=== PATIENT | male | born 1955 | race Caucasian/White ===

== ENCOUNTER 2023-11-01 10:33 | Emergency (ER) | payer MEDICARE, OTHER, SELFPAY ==
[2023-11-01 10:45] VITALS: BP 151/65; PULSE 63; RESP 18; TEMP 36.8; O2SAT 98; BMI 58.0
--- NOTE | 2023-11-01 10:55 | ED_ITS ---
HPI - Skin/Abscess/Foreign Bdy General Chief complaint: Skin/Abscess/Foreign Body Stated complaint: RASH Time Seen by Provider: 11/01/23 10:55 Source: patient Mode of arrival: walk-in Limitations: no limitations History of Present Illness HPI narrative: patient here for evaluation of a rash he believes it started approximately a month ago. He thought initially it may have been poison shereen but his rashes spread. He's actually had shingles before in his facial area. Otherwise he has no complaints or symptoms at all today. Related Data Allergies Allergy/AdvReac Type Severity Reaction Status Date / Time No Known Drug Allergies Allergy Verified 11/01/23 10:49 Exam Narrative Exam Narrative: examination as noted under medical decision making Constitutional Vital Signs, click to edit/add: Last Vital Signs Temp 98.2 F 11/01/23 10:45 Pulse 63 11/01/23 10:45 Resp 18 11/01/23 10:45 BP 151/65 H 11/01/23 10:45 Pulse Ox 98 11/01/23 10:45 O2 Del Method Room Air 11/01/23 10:45 Course Vital Signs Vital signs: Vital Signs Temperature 98.2 F 11/01/23 10:45 Pulse Rate 63 11/01/23 10:45 Respiratory Rate 18 11/01/23 10:45 Blood Pressure 151/65 H 11/01/23 10:45 Pulse Oximetry 98 11/01/23 10:45 Oxygen Delivery Method Room Air 11/01/23 10:45 Temperature 98.2 F 11/01/23 10:45 Pulse Rate 63 11/01/23 10:45 Respiratory Rate 18 11/01/23 10:45 Blood Pressure 151/65 H 11/01/23 10:45 Pulse Oximetry 98 11/01/23 10:45 Oxygen Delivery Method Room Air 11/01/23 10:45 MDM - Skin/Abscess/Foreign Bdy MDM Narrative Medical decision making narrative: awake alert pleasant in no distress vital signs are noted essentially stable. Examination of skin integument he has classic vesicular type lesions in a dermatomal pattern starting in the anterior chest wall midline extending underneath the left breast into his posterior thoracic area. Multiple vesicles are noted. He assures me that there are at least a month old.we will give him analgesics for nighttime use. He is trying not to rub the area and get a secondary infection. Cold compresses with Epsom salts may be helpful Discharge Plan Discharge Chief Complaint: Skin/Abscess/Foreign Body Clinical Impression: Acute pain associated with herpes zoster Patient Disposition: Home, Self-Care Time of Disposition Decision: 10:57 Additional Instructions: [place] at nighttime only Stand Alone Forms: Portal Instructions
== END 2023-11-01 11:07 | disposition home or self-care (01) ==
LOC: ER 11:06
PROVIDERS: Emergency Provider Emergency Medicine Emergency Medical Services
DX: B02.8 Zoster with other complications (principal); R52 Pain, unspecified
CPT/HCPCS: 99283

== ENCOUNTER 2023-12-01 11:14 | Outpatient (OUT) | payer MEDICARE, OTHER, SELFPAY ==
--- OUTSIDE RECORDS SUMMARY | 2023-12-01 11:27 | XMS_ITS | CCD ---
Author Name Unknown Address [address] [place] [id number] Organization [facility] Care Team Providers Care Drapery Cutter Machine Name Role Phone CLARK FELIPE Admitting Unavailable CLARK FELIPE Attending Unavailable CLARK FELIPE Consulting Unavailable FELICITAS TODD Referring Unavailable BARBRADENIFABRIZIO Attending Unavailable FELICITAS TODD Referring Unavailable FABRIZIO MOCK Attending Unavailable FELICITAS TODD Referring Unavailable FELICITAS TODD Attending Unavailable VERA ACEVEDO Attending Unavailable CLARK FELIPE Referring Unavailable CLARK FELIPE Primary Care Unavailable Clark Felipe DO Primary Care Provider Allergies Allergy Classification Reported Allergen(s) Allergy Type Date of Onset Reaction(s) Facility (4 sources) Grass pollen; Translations: [GRASS POLLEN] Propensity to adverse reactions to drug (disorder) 3 [facility] Medications Current Medications Medication Drug Class(es) Dates Sig (Normalized) Sig (Original) acetaminophen 325 mg / HYDROcodone bitartrate 5 mg oral tablet (2 sources) Opioid Agonist Start: 11-01-2023 take 1-2 tablets by mouth at bedtime HYDROcodone-acetam inophen (NORCO) 5-325 mg per tablet TAKE 1 TO 2 TABLETS BY MOUTH AT BEDTIME FOR UP TO 20 DAYS 0 11/01/2023 Active apixaban 5 mg oral tablet (2 sources) Factor Xa Inhibitor take 1 tablet by mouth at bedtime ELIQUIS 5 mg tablet TAKE 1 TABLET BY MOUTH IN THE MORNING AND AT BEDTIME 0 Active aspirin 325 mg oral tablet (2 sources) Platelet Aggregation Inhibitor, Nonsteroidal Anti-inflammatory Drug aspirin 325 mg tablet daily. 0 Active brimonidine tartrate 2 mg/ml ophthalmic solution (2 sources) alpha-Adrenergic Agonist Start: 11-18-2022 take 1 drop(s) into the eye(s) every twelve hours brimonidine (ALPHAGAN) 0.2 % ophthalmic solution INSTILL 1 DROP INTO BOTH EYES EVERY 12 HOURS DIRECTED 0 11/18/2022 Active szoj-ctodgp-azyebesz -D3-C-Mn (GLUCOSAMINE-CHONDR- D3, C-CHARISSE,) 500-400-667 mg-mg-unit capsule (2 sources) nvth-hrfuik-doam ag en-D3-C-Mn (GLUCOSAMINE-CHOND R-D3, C-CHARISSE,) 500-400-667 mg-mg-unit capsule daily. 0 Active lidocaine 0.05 mg/mg medicated patch (2 sources) Antiarrhythmic, Amide Local Anesthetic Start: 11-05-2023 apply 1 dose transdermal route once daily, then apply 1 dose transdermal route every twelve hours lidocaine (LIDODERM) 5 % Place 1 patch on the skin daily. Remove & Discard patch within 12 hours or as directed by 10 patch 0 11/05/2023 Active 24 hr metoprolol succinate 100 mg extended release oral tablet (2 sources) beta-Adrenergic Altagracia Start: 08-31-2022 take 1 tablet by mouth twice daily metoprolol succinate XL (TOPROL XL) 100 mg 24 hr tablet metoprolol succinate ER 100 mg tablet,extended release 24 hr Take 1 tablet twice a day by oral route for 90 days. 0 08/31/2022 Active predniSONE 20 mg oral tablet (1 source) Start: 11-05-2023 End: 11-10-2023 take 1 tablet by mouth in the morning, then take 1 tablet by mouth at bedtime predniSONE (DELTASONE) 20 mg tablet Take 1 tablet (20 mg total) by mouth in the morning and 1 tablet (20 mg total) before bedtime. Do all this for 5 days. 10 tablet 0 11/05/2023 11/10/2023 Active ramipril 5 mg oral capsule (3 sources) Angiotensin Converting Enzyme Inhibitor Start: 11-13-2023 take 1 capsule by mouth once daily ramipriL (ALTACE) 5 mg capsule Indications: Essential (primary) hypertension TAKE 1 CAPSULE BY MOUTH EVERY DAY 90 capsule 1 11/13/2023 Active Start: 2023 End: 11-13-2023 take 1 capsule by mouth once daily ramipriL (ALTACE) 5 mg capsule Indications: Essential (primary) hypertension TAKE 1 CAPSULE BY MOUTH EVERY DAY 90 capsule 1 2023 11/13/2023 Discontinued rosuvastatin calcium 5 mg oral tablet (3 sources) HMG-CoA Reductase Inhibitor Start: 11-13-2023 take 1 tablet by mouth once daily rosuvastatin (CRESTOR) 5 mg tablet Indications: Encounter for screening for cardiovascular disorders TAKE 1 TABLET BY MOUTH EVERY DAY 90 tablet 2 11/13/2023 Active Start: 02-24-2023 End: 11-13-2023 take 1 tablet by mouth once daily rosuvastatin (CRESTOR) 5 mg tablet Indications: Encounter for screening for cardiovascular disorders TAKE 1 TABLET BY MOUTH EVERY DAY 90 tablet 2 02/24/2023 11/13/2023 Discontinued valACYclovir 500 mg oral tablet (1 source) Herpesvirus Nucleoside Analog DNA Polymerase Inhibitor, Herpes Simplex Virus Nucleoside Analog DNA Polymerase Inhibitor, Herpes Zoster Virus Nucleoside Analog DNA Polymerase Inhibitor Start: 11-05-2023 End: 11-12-2023 take 2 tablets by mouth three times daily valACYclovir (VALTREX) 500 mg tablet Take 2 tablets (1,000 mg total) by mouth 3 (three) times a day for 7 days. 42 tablet 0 11/05/2023 11/12/2023 Active Problems Active Problems Problem Classification Problem Date Documented Da te Episodic/Chronic Cardiac dysrhythmias (2 sources) Sinus node dysfunction; Translations: [Sick sinus syndrome] Onset: 12-04-2013 11-25-2022 Chronic Conduction disorders (4 sources) Encounter for adjustment and management of automatic implantable cardiac defibrillator; Translations: [Conduction disorder of the heart] Onset: 11-03-2012 Chronic Congestive heart failure; nonhypertensive (2 sources) Congestive heart failure; Translations: [Heart failure, unspecified] Onset: 03-17-2012 11-25-2022 Chronic Disorders of lipid metabolism (2 sources) Hypertriglyceridemi a; Translations: [Pure hyperglyceridemia] Onset: 11-25-2022 11-25-2022 Chronic Essential hypertension (3 sources) Essential hypertension; Translations: [Essential (primary) hypertension] Onset: 11-25-2022 11-25-2022 Chronic Other screening for suspected conditions (not mental disorders or infectious disease) (2 sources) Encounter for screening for malignant neoplasm of prostate; Translations: [Patient encounter status] Onset: 11-11-2018 11-13-2023 Episodic Pulmonary heart disease (2 sources) Chronic cor pulmonale; Translations: [Pulmonary heart disease, unspecified] Onset: 11-03-2012 11-25-2022 Chronic Residual codes; unclassified (4 sources) High risk heterosexual behavior; Translations: [HIGH RISK HETEROSEXUAL BEHAVIOR] Onset: 11-03-2018 Episodic Residual codes; unclassified (1 source) Other specified personal risk factors, not elsewhere classified; Translations: [OTH SPEC PERSONAL RISK FACTORS NEC] Onset: 11-11-2018 Episodic Past or Other Problems Problem Classification Problem Date Documented Da te Episodic/Chronic Cardiac dysrhythmias (2 sources) Palpitations; Translations: [Palpitations] Onset: 03-17-2012 11-25-2022 Episodic Mood disorders (2 sources) Mood disorders Onset: 11-05-2023 11-05-2023 Nonspecific chest pain (2 sources) Chest pain; Translations: [Chest pain, unspecified] Onset: 03-17-2012 Resolved: 11-25-2022 11-25-2022 Episodic Other nutritional; endocrine; and metabolic disorders (2 sources) Overweight in adulthood with body mass index of 25 or more but less than 30; Translations: [Body mass index (BMI) 27.0-27.9, adult] Onset: 11-25-2022 11-25-2022 Episodic Viral infection (4 sources) Zoster without complications; Translations: [Herpes zoster without complication] Onset: 11-05-2023 Resolved: 11-25-2022 11-05-2023 Episodic Results Test Name Value Interpretation Reference Range Facility Documentationon 10-28-2023 Documentation [id number] Justin Younger 1955 M Date Provider Department Center 10/28/[address] No family history on file Reason for Visit and Comments: Palpitations [414768] Normal [facility] Office Visiton 10-19-2023 Follow-up visit [id number] Justin Younger 1955 M Date Provider Department Center 10/19/2023 FELICITAS BISHOP CARD [facility] No family history on file Level of Service:20530 NE OFFICE/OUTPATIENT ESTABLISHED MOD MDM 30 MIN Normal [facility] Orders Onlyon 10-19-2023 Orders Only [id number] Justin Younger 1955 M Date Provider Department Center 10/19/2023 SHAYLEE MYRICK [facility] No family history on file Normal [facility] Office Visiton 05-26-2023 Follow-up visit [id number] Justin Younger 1955 M Date Provider Department Center 05/26/2023 FABRIZIO RAHMAN [facility] No family history on file Level of Service:39051 NE OFFICE/OUTPATIENT ESTABLISHED MOD MDM 30-39 MIN Normal [facility] Office Visiton 12-01-2022 Follow-up visit [id number] Justin Younger 1955 M Date Provider Department Center 12/01/2022 FABRIZIO RAHMAN [facility] No family history on file Level of Service:35721 NE OFFICE/OUTPATIENT ESTABLISHED LOW MDM 20-29 MIN Normal [facility] COMPREHENSIVE METABOLIC PANE Yemi 01-25-2022 Albumin [Mass/Vol] 4.9 g/dL Normal 3.6-5.1 [facility] Comment on above: Performed By: #### 7 600, 09428, 5363 #### [facility] [place] [address] Bilingual Customer Service Specialist: Nick Bermeo MD Albumin/Globulin [Mass ratio] 2.0 {ratio} Normal 1.0-2.5 [facility] Comment on above: Performed By: #### 7 600, 28561, 5363 #### [facility] [place] [address] Bilingual Customer Service Specialist: Nick Bermeo MD ALP [Catalytic activity/Vol] 54 U/L Normal 35-144 [facility] Comment on above: Performed By: #### 7 600, 48808, 5368 #### [facility] [place] [address] Bilingual Customer Service Specialist: Nick Bermeo MD ALT [Catalytic activity/Vol] 21 U/L Normal 9-46 [facility] Comment on above: Performed By: #### 7 600, 34048, 5363 #### [facility] of [address], [address] [place] [address] Bilingual Customer Service Specialist: Nick Bermeo MD AST [Catalytic activity/Vol] 17 U/L Normal 10-35 [facility] Comment on above: Performed By: #### 7 600, 97136, 5363 #### [facility] of [address], [address] [place] [address] Bilingual Customer Service Specialist: Nick Bermeo MD Bilirubin [Mass/Vol] 0.5 mg/dL Normal 0.2-1.2 [facility] Comment on above: Performed By: #### 7 600, 49904, 5363 #### [facility] of [address], [address] [place] [address] Bilingual Customer Service Specialist: Nick Bermeo MD BUN/CREATININE RATIO NOT APPLICABLE Normal 6-22 [facility] Comment on above: Performed By: #### 7 600, , 5363 #### [facility] of [address], [address] [place] [address] Bilingual Customer Service Specialist: Nick Bermeo MD Calcium [Mass/Vol] 9.9 mg/dL Normal 8.6-10.3 [facility] Comment on above: Performed By: #### 7 600, 89395, 5363 #### [facility] of [place] [address] Bilingual Customer Service Specialist: Nick Bermeo MD Chloride [Moles/Vol] 100 mmol/L Normal 98-110 [facility] Comment on above: Performed By: #### 7 600, 70012, 5363 #### [facility] of [address], [address] [place] [address] Bilingual Customer Service Specialist: Nick Bermeo MD CO2 [Moles/Vol] 28 mmol/L Normal 20-32 [facility] Comment on above: Performed By: #### 7 600, 43137, 5363 #### [facility] of [address], [address] [place] [address] Bilingual Customer Service Specialist: Nick Bermeo MD Creatinine [Mass/Vol] 1.05 mg/dL Normal 0.70-1.[address] [facility] Comment on above: Result Comment: For patients >49 years of age, the reference limit for Creatinine is approximately 13% higher for people identified as -Citizen Of [place]. Performed By: #### 7 600, 51329, 5363 #### [facility] [address], [address] [place] [address] Bilingual Customer Service Specialist: Nick Bermeo MD eGFR NON-AFR. SLOVAK 75 mL/min/1.73m2 Normal > OR = 60 [facility] Comment on above: Performed By: #### 7 600, 51441, 5363 #### [facility] [address], [address] [place] [address] Bilingual Customer Service Specialist: Nick Bermeo MD GFR/1.73 sq M.predicted among blacks MDRD (S/P/Bld) [Vol rate/Area] 87 mL/min/{1.73_m2} Normal > OR = 60 [facility] Comment on above: Performed By: #### 7 600, 41161, 5363 #### [facility] [address], [address] [place] [address] Bilingual Customer Service Specialist: Nick Bermeo MD Globulin (S) [Mass/Vol] 2.5 g/dL Normal 1.9-3.7 [facility] Comment on above: Performed By: #### 7 600, 16194, 5363 #### [facility] [address], [address] [place] [address] Bilingual Customer Service Specialist: Nick Bermeo MD Glucose [Mass/Vol] 105 mg/dL High 65-99 [facility] Comment on above: Result Comment: Fasting reference interval For someone without known diabetes, a glucose value between 100 and 125 mg/dL is consistent with prediabetes and should be confirmed with a follow-up test. Performed By: #### 7 600, 12986, 5363 #### [facility] [address], [address] [place] [address] Bilingual Customer Service Specialist: Nick Bermeo MD Potassium [Moles/Vol] 5.1 mmol/L Normal 3.5-5.3 [facility] Comment on above: Performed By: #### 7 600, 19232, 5363 #### [facility] of [place] [address] Bilingual Customer Service Specialist: Nick Bermeo MD Protein [Mass/Vol] 7.4 g/dL Normal 6.1-8.1 [facility] Comment on above: Performed By: #### 7 600, 42718, 5363 #### [facility] of [address], [address] [place] [address] Bilingual Customer Service Specialist: Nick Bermeo MD Sodium [Moles/Vol] 138 mmol/L Normal 135-146 [facility] Comment on above: Performed By: #### 7 600, 60320, 5363 #### [facility] of [place] [address] Bilingual Customer Service Specialist: Nick Bermeo MD Urea nitrogen [Mass/Vol] 19 mg/dL Normal 7-25 [facility] Comment on above: Performed By: #### 7 600, 20759, 5363 #### [facility] of [place] [address] Bilingual Customer Service Specialist: Nick Bermeo MD LIPID PANEL, [facility] 12-31 Cholesterol [Mass/Vol] 191 mg/dL Normal <200 [facility] Comment on above: Order Comment: FASTI NG:YES FASTING: YES Performed By: #### 7 600, 28961, 5363 #### [facility] of [place] [address] Bilingual Customer Service Specialist: Nick Bermeo MD Cholesterol in HDL [Mass/Vol] 31 mg/dL Low > OR = 40 [facility] Comment on above: Order Comment: FASTI NG:YES FASTING: YES Performed By: #### 7 600, 83733, 5363 #### [facility] of [place] [address] Bilingual Customer Service Specialist: Nick Bermeo MD Cholesterol in LDL [Mass/Vol] 106 mg/dL High [facility] Comment on above: Order Comment: FASTI NG:YES FASTING: YES Result Comment: Refe rence range: <100 Desirable range <100 mg/dL for primary prevention; <70 mg/dL for patients with CHD or diabetic patients with > or = 2 CHD risk factors. LDL-C is now calculated using the Libby calculation, which is a validated novel method providing better accuracy than the Friedewald equation in the estimation of LDL-C. Lucas SS et al. GEOFFREY. 2013;310(19): 6110-8770 (http://education.[employer]/faq/ZOM525) Performed By: #### 7 600, 05806, 5363 #### [facility] [address], [address] [place] [address] Bilingual Customer Service Specialist: Nick Bermeo MD Cholesterol.total/Cho lesterol in HDL [Mass ratio] 6.2 {ratio} High <5.0 [facility] Comment on above: Order Comment: FASTI NG:YES FASTING: YES Performed By: #### 7 600, 54594, 5363 #### [facility] [address], [address] [place] [address] Bilingual Customer Service Specialist: Nick Bermeo MD NON HDL CHOLESTEROL 160 mg/dL (calc) High <130 [facility] Comment on above: Order Comment: FASTI NG:YES FASTING: YES Result Comment: For patients with diabetes plus 1 major ASCVD risk factor, treating to a non-HDL-C goal of <100 mg/dL (LDL-C of <70 mg/dL) is considered a therapeutic option. Performed By: #### 7 600, 26797, 5363 #### [facility] [address], [address] [place] [address] Bilingual Customer Service Specialist: Nick Bermeo MD Triglyceride [Mass/Vol] 379 mg/dL High <150 [facility] Comment on above: Order Comment: FASTI NG:YES FASTING: YES Result Comment: If a non-fasting specimen was collected, consider repeat triglyceride testing on a fasting specimen if clinically indicated. Laura et al. J. of Clin. Lipidol. 2015;9:129-169. Performed By: #### 7 600, 76201, 5363 #### [facility] [address], [address] [place] [address] Bilingual Customer Service Specialist: Nick Bermeo MD PSA, TOTALon 01-25-2022 PSA, TOTAL 2.16 ng/mL Normal < OR = 4.00 [facility] Comment on above: Result Comment: The total PSA value from this assay system is standardized against the WHO standard. The test result will be approximately 20% lower when compared to the equimolar-standardized total PSA (Katy Hunter). Comparison of serial PSA results should be interpreted with this fact in mind. This test was performed using the Siemens chemiluminescent method. Values obtained from different assay methods cannot be used interchangeably. PSA levels, regardless of value, should not be interpreted as absolute evidence of the presence or absence of disease. Performed By: #### 7 600, 79820, 5363 #### [facility] [address] Bilingual Customer Service Specialist: Nick Bermeo MD HEPATITIS PANEL, ACUTEon HBsAg Screen Negative Normal Negative [facility] Comment on above: Performed By: #### H EPACUT #### [facility] [address] [place] [address] Latisha Sondra Hep A Ab, IgM Negative Normal Negative [facility] Comment on above: Performed By: #### H EPACUT #### [facility] [address] [place] [address] Latisha Sondra Hep B Core Ab, IgM Negative Normal Negative [facility] Comment on above: Performed By: #### H EPACUT #### [facility] [address] [place] [address] Latisha Sondra Hep C Virus Ab <0.1 Normal 0.0-0.9 [facility] Comment on above: Result Comment: Nega tive: < 0.8 Indeterminate: 0.8 - 0.9 Positive: > 0.9 . The CDC recommends that a positive HCV antibody result be followed up with a HCV Nucleic Acid Amplification test (489165). Performed By: #### H EPACUT #### [facility] [address] [place] [address] Latisha Amaro HIV 1 AND 2 WITH REFLEXon HIV Screen 4th Generation wRfx Non Reactive Normal Non Reactive [facility] Comment on above: Performed By: #### H IV12 #### [facility] [address] [place], [place] [address] Latisha Amaro RPR QUANTon 11-05-2018 Rapid Plasma Reagin, Quant Non Reactive Normal NonRea<1:1 [facility] Comment on above: Performed By: #### R PRQ #### [facility] [address] [place], [place] [address] Latisha Amaro Vital Signs Date Time Vital Sign Value Performing Clinician Faci lity 11-05-2023 09:31-0500 Body mass index (BMI) [Ratio] 26.57 kg/m2 Vera Curtis TRA[employer]EL INFORMATION CENTER SUPERVISOR-BEDSPREAD INSPECTOR Work Phone: [facility] [employer] 11-05-2023 09:31-0500 Body temperature 97.7 [degF] Vera Skedo [employer]FORMATION [facility]ENTER SUPERVISOR-BEDSPREAD INSPECTOR Work Phone: [facility] 11-05-2023 09:31-0500 Body weight 74.66 kg Vera Curtis [employer]FORMATION [facility] SUPERVISOR-BEDSPREAD INSPECTOR [facility] 11-05-2023 09:31-0500 Diastolic blood pressure 70 mm[Hg] [facility] SUPERVISOR-BEDSPREAD INSPECTOR Work Phone: [facility] [employer] 11-05-2023 09:31-0500 Heart rate 55 /min Vera Curtis [employer] INFORMATION CENTER SUPERVISOR-BEDSPREAD INSPECTOR Work Phone: [facility] [employer] 11-05-2023 09:31-0500 SaO2% (BldA) [Mass fraction] 96 % Vera Skedo TRA[employer] INFORMATION CENTER SUPERVISOR-BEDSPREAD INSPECTOR [facility] 11-05-2023 09:31-0500 Systolic blood pressure 130 mm[Hg] [facility] SUPERVISOR-BEDSPREAD INSPECTOR [facility] En[facility]ters Encounter Date Encounter Type Care Provider Facility Start: 11-13-2023 Refill Clark marie DO Work Phone: [facility] Comment on above: Encounter for screen ing for cardiovascular disorders; Essential (primary) hypertension Start: 11-05-2023 End: 11-05-2023 ambulatory VERA Danial CURTIS [facility] Start: 11-05-2023 End: 11-05-2023 Office outpatient visit 15 minutes Vera Acevedo TRAV[employer] INFORMATION CENTER SUPERVISOR-BEDSPREAD INSPECTOR Work Phone: [facility] Comment on above: Herpes zoster withou t complication (Primary Dx) Start: 10-19-2023 End: 10-19-2023 ambulatory [facility] Start: 07-20-2023 End: 07-20-2023 ambulatory [facility] Start: 05-26-2023 End: 05-26-2023 ambulatory [facility] Start: 03-10-2023 End: 03-10-2023 ambulatory [facility] Start: 12-01-2022 End: 12-01-2022 ambulatory [facility] Start: 11-03-2018 End: 11-04-2018 Patient encounter procedure CLARK FELIPE Facility: Procedures Date Procedure Procedure Detail Performing Clinician Start: 11-05-2023 Follow-up visit Follow-up VERASHANA ACEVEDO Start: 11-05-2023 Adult depression screening assessment Vera Acevedo TRAV[employer] INFORMATION CENTER SUPERVISOR-BEDSPREAD INSPECTOR Work Phone: Start: 11-03-2018 PSA screening CLARK MENDEZ Comment on above: Performed By: #### P [facility] #### [facility] [address] [place] [address] Latisha Amaro Plan of Treatment Date Care Activity Detail Author Start: 11-05-2024 Adult BMI Screening Adult BMI Screening [facility] Start: 11-05-2024 Depression Screening Depression Screening [facility] Start: 11-05-2024 Fall Risk Screening Fall Risk Screening [facility] Start: 11-05-2024 Tobacco Screening Tobacco Screening [facility] Start: 04-26-2024 Medicare Annual Wellness Visit Medicare Annual Wellness Visit [facility] Start: 07-02-2023 Influenza vaccination Influenza Vaccine [facility] Start: 1976 Administration of varicella zoster vaccine Zoster (Shingles) Vaccine (1 of 2) [facility] Start: 1976 DTaP,Tdap and Td Vaccines (1 - Tdap) DTaP,Tdap and Td Vaccines (1 - Tdap) [facility] Start: 1975 Adult BMI Follow Up Plan Adult BMI Follow Up Plan [facility] Payers Date Payer Category Payer Medicare [id number] 2022 Medicare MEDICARE MEDICAR E PART A & B [id number] 2022-Present [phone] [id number] [place] [address] [id number] 2022 Unknown [id number] 2022 Unknown [employer] [id number] 2022-Present [phone] [id number] [place] [address] [id number] 1959 Unknown [id number] 1955 Unknown [id number] 1955 Unknown [id number] Social History Date Type Detail Facility Start: 11-25-[address] [facility] Start: 1977 End: 1992 History of tobacco use Current smoker [facility] Start: 1977 End: 1992 History of tobacco use Cigarette Smoker [facility] Start: 11-25-2022 End: 04-26-2023 Cigarettes smoked current (pack per day) - Reported 1 [facility] Start: 11-25-2022 Tobacco use and exposure Smoke less tobacco non-user [facility] Start: 11-05-2023 Alcohol intake Lifetime non-d jasmin (finding) [facility] Start: 04-26-2023 End: 11-05-2023 Social connection and isolation panel [facility] Do you belong to any clubs or organizations such as alevism groups, unions, fraternal or athletic groups, or school groups? No [facility] Are you now , , , , never or living with a partner? [facility] How often to you hav e a drink containing alcohol? Never [facility] How many standard dr inks containing alcohol do you have on a typical day? Patient does not drink [facility] How hard is it for y ou to pay for the very basics like food, housing, medical care, and heating Not very hard [facility] Do you feel stress - tense, restless, nervous, or anxious, or unable to sleep at night because your mind is troubled all the time - these days [OSQ] Not at all [facility] Start: 1955 Sex Assigned At Not on file P [facility] Clinical Notes 12-01-2022 to 11-05-2023 Vera Acevedo APRN-BEDSPREAD INSPECTOR - 11/05/2023 9:30 AM EST Note Date & Type Note Facility 11-05-2023 History of Present illness Narrative Images from the original note were not included. [address] [place] [facility] [id number] Patient: Justin Younger Date of : 1955 Encounter Date: 11/05/2023 History of Present Illness: The patient is a 68 y.o. male, an established patient, and is here for Chief Complaint Patient presents with Follow-up Er follow up / shingles . HPI Patient developed a burning painful blistered rash on October 31 2 his left chest and left upper back. He went to the ER at the [facility] the next day and ER physician gave him hydrocodone with acetaminophen to help with his pain because the ER physician had thought the patient had told him the rash had been going on for the last 1 month and it was too late to give the antiviral medication. Patient clarifies that his pain had been going on for 1 month in his back but the rash developed October 31. He has been taking the hydrocodone acetaminophen medication but is still unable to sleep due to the pain. Problem List Items Addressed This Visit None Visit Diagnoses Herpes zoster without complication - Primary Relevant Medications valACYclovir (VALTREX) 500 mg tablet Past Medical, Family, and Social History Update: The following portions of the patient's history were reviewed and updated as appropriate: allergies, current medications, past family history, past medical history, past social history, past surgical history and problem list. Past Medical History: Diagnosis Date Shingles Past Surgical History: Procedure Laterality Date CARDIAC SURGERY CYST REMOVAL HERNIA REPAIR LASER ABLATION Current Outpatient Medications Medication Sig Dispense Refill brimonidine (ALPHAGAN) 0.2 % ophthalmic solution INSTILL 1 DROP INTO BOTH EYES EVERY 12 HOURS DIRECTED [id number] ([id number], C-CHARISSE,) [id number] mg-mg-unit capsule daily. HYDROcodone-acetaminophen (NORCO) 5-325 mg per tablet TAKE 1 TO 2 TABLETS BY MOUTH AT BEDTIME FOR UP TO 20 DAYS metoprolol succinate XL (TOPROL XL) 100 mg 24 hr tablet metoprolol succinate ER 100 mg tablet,extended release 24 hr Take 1 tablet twice a day by oral route for 90 days. ramipriL (ALTACE) 5 mg capsule TAKE 1 CAPSULE BY MOUTH EVERY DAY 90 capsule 1 rosuvastatin (CRESTOR) 5 mg tablet TAKE 1 TABLET BY MOUTH EVERY DAY 90 tablet 2 aspirin 325 mg tablet daily. (Patient not taking: Reported on 11/05/2023) ELIQUIS 5 mg tablet TAKE 1 TABLET BY MOUTH IN THE MORNING AND AT BEDTIME lidocaine (LIDODERM) 5 % Place 1 patch on the skin daily. Remove & Discard patch within 12 hours or as directed by MD 10 patch 0 predniSONE (DELTASONE) 20 mg tablet Take 1 tablet (20 mg total) by mouth in the morning and 1 tablet (20 mg total) before bedtime. Do all this for 5 days. 10 tablet 0 valACYclovir (VALTREX) 500 mg tablet Take 2 tablets (1,000 mg total) by mouth 3 (three) times a day for 7 days. 42 tablet 0 No current facility-administered medications for this visit. (All medications reviewed and updated by provider since last office visit or hospitalization) Allergies: Grass pollen Tobacco History: Social History Tobacco Use Smoking Status Former Packs/day: 1.00 Years: 25.00 Additional pack years: 0.00 Total pack years: 25.00 Types: Cigarettes Start date: 1977 Quit date: 1992 Years since quittin.4 Smokeless Tobacco Never (If patient a smoker, smoking cessation counseling offered) Social History: Social History Substance and Sexual Activity Alcohol Use Never Review of Systems: Review of Systems Musculoskeletal: Positive for back pain and myalgias (Burning aching pain to areas marked on diagram in physical exam). Skin: Positive for rash. Physical Exam: BP 130/70 (BP Site: Left Arm, BP Postition: Sitting) Pulse 55 Temp 36.5 C (97.7 F) (Oral) Wt 74.7 kg (164 lb 9.6 oz) SpO2 96% BMI 26.57 kg/m Physical Exam Vitals reviewed. Implementation Coordinator present: Spouse present. Constitutional: Appearance: Normal appearance. HENT: Head: Normocephalic and atraumatic. Skin: Capillary Refill: Capillary refill takes less than 2 seconds. Findings: Rash present. Rash is vesicular. Comments: clustered blistered rash 2 areas marked on diagram above. Only 1 area to back that has scabbed over which is between his shoulder blades, no open blisters at this time Neurological: General: No focal deficit present. Mental Status: He is alert and oriented to person, place, and time. Gait: Gait normal. Assessment and Plan: Justin was seen today for follow-up. Diagnoses and all orders for this visit: Herpes zoster without complication Other orders - valACYclovir (VALTREX) 500 mg tablet; Take 2 tablets (1,000 mg total) by mouth 3 (three) times a day for 7 days. - lidocaine (LIDODERM) 5 %; Place 1 patch on the skin daily. Remove & Discard patch within 12 hours or as directed by MD - predniSONE (DELTASONE) 20 mg tablet; Take 1 tablet (20 mg total) by mouth in the morning and 1 tablet (20 mg total) before bedtime. Do all this for 5 days. Follow-up: Patient should immediately start the antiviral medication and steroid medication as listed above and he may apply the lidocaine patches to only the scabbed closed areas of the rash as needed. He should notify provider or follow-up in the office if his rash does not improve in the next 72 hours. He should get the Shingrix vaccine once the rash has completely cleared. Shingles education sheet printed for patient at checkout. OCTAVIO ARIAS APRN-CNP 11/08/23 0918 documented in this encounter [facility] 10-28-2023 Note Patient called [facility] devine regarding palpitations, was contacted via email. He had ECG which appears fairly normal with no cocnerns for ischemia He has had complaints of this in the past per the note For now we will CT to monitor given he had device check 10 days ago If it persists or worsens we can do device check and consider stress testing but would like to see him in the clinic to eval If he has CP or discomfort that worsens, or does not just go away, and/or causes symptoms of shortness of breath, nausea, dizziness, diaphoresis, then he is to report to [facility] 10-19-2023 Note Patient here for fol low up and device check. Battery has 3 months left. Had some palpitations a few days back, which he attributes to not sleeping well. Said he slept better last night and woke up feeling fine. Denies chest pain and SOB. Review of Systems Cardiovascular: Positive for palpitations (rare). All other systems reviewed and are negative. [facility] Consult Note Reason for visit: sick sinus syndrome s/p PPM 2012, A-fib s/p ablation 2015, 10/19/23 He states he has been doing very well denies chest pain, palpitations, shortness of breath, GRAY, lightheadedness, dizziness. his [id number] score is 2 and per guidelines he is recommended to be on anticoagulation despite minimal A. fib burden on past device checks. Device is at [facility] device check 10/19/23: Biotronik dual chamber PPM with evidence of Afib in May 2023 with longest duration of 7hrs. He is not on AC. 09/2022 had normal threshold and impedance, 99% AP and 100% VS, with no atrial burden. 06/2022 HPI: Justin Younger is a 68 y.o. with PMH of atrial fibrillation who underwent an A. fib ablation at [facility] in 2015. Previously he had a pacemaker implanted for sinus node dysfunction by Dr. Lilliana Silva in 2012 for what was believed to be a 17-second pause. When he is concerned about other health issues such as his dental problems. Otherwise he is a reasonably active man with no limitations and is currently not on any anticoagulation. he denies chest pain, dyspnea, orthopnea, PND, lower extremity edema, dizziness/lightheadedness, syncope, bleeding issues. PMHx: sinus node dysfunction s/p dual chamber PPM, paroxysmal a.fib with hx a.fib, PSVT, HTN -Denies chest pain, dyspnea, orthopnea, PND, lower extremity edema, dizziness/lightheadedness, syncope, bleeding issues. Device check that was done on 03/17/2022 shows evidence of a dual-chamber pacemaker with a 99% pacing in the atrium and no ventricular pacing. High atrial rates were recorded but unfortunately no strips to review Device check 09/03/2021: normal functioning device, 30 episodes of mode switching (2 minutes total), battery life 1 year and 9 months No strips Device check 03/05/21: multiple episodes of a.fib with ventricular response of 150 bpm on 02/14/21, shortest episode 10 min, longest episode 8 hours ECHO 04/2016 Global left ventricular systolic function is normal (Visually estimated EF 55%). Normal right ventricular systolic function. Doppler studies suggest normal right sided pressures. No significant valvular abnormalities CVL 12/15/[address] Ramirez Coronary Angiography: This is a left-dominant circulation. Left Main: This is a very short vessel arising from the left coronary cusp. It bifurcates into a left anterior descending and circumflex vessel. Left Anterior Descending: This is a large vessel. It is free of disease. Circumflex Vessel: This is a large and dominant vessel. It has minimal luminal irregularities and is free of any significant disease. Right Coronary Artery: This is arising from the right coronary cusp. It is very small and nondominant vessel that does not have evidence of obstructive disease. Note is made of mild catheter induced spasm at the ostium. Femoral Angiography: This showed evidence of mild atherosclerotic lesions in the femoral artery and its branches with a small size femoral artery that is not suitable for a groin access closure. Summary Of The Findings: No evidence of obstructive coronary disease in a left-dominant system. ECHO 2012 Conclusion: Normal systolic function of the left ventricle. Moderate diastolic dysfunction. Left ventricular hypertrophy. Moderate to severe pulmonary hypertension. PMH: Past Medical History: Diagnosis Date ??? Atrial fibrillation (CMS/HCC) ??? Hyperlipidemia ??? Hypertension ??? Pacemaker ??? Pulmonary HTN (CMS/HCC) per echo 2012, most recent echo not noted ??? Sinus node dysfunction (CMS/HCC) ??? Sleep apnea PSH: Past Surgical History: Procedure Laterality Date ??? ABLATION OF DYSRHYTHMIC FOCUS ??? INSERT / REPLACE / REMOVE PACEMAKER SH: Social Determinants of Health Tobacco Use: Not on file Alcohol Use: Not on file Financial Resource Strain: Not on file Food Insecurity: Not on file Transportation Needs: Not on file Physical Activity: Not on file Stress: Not on file Social Connections: Not on file Intimate Partner Violence: Not on file Depression: Not on file Housing Stability: Not on file Allergies: Allergies Allergen Reactions ??? Grass Pollen Weight: 76.2kg Visit Vitals BP 130/83 (BP Location: Left arm, Patient Position: Sitting) Pulse 60 Ht 1.676 m (5' 6 ) Wt 76.2 kg (168 lb) SpO2 97% BMI 27.12 kg/m??? Smoking Status Never Assessed BSA 1.88 m??? Meds: Current Outpatient Medications on File Prior to Visit Medication Sig Dispense Refill ??? aspirin 325 mg tablet Take 1 tablet every day by oral route. (more content not included)... [facility] 10-19-2023 Note Patient here for fol low up and device check. Battery has 3 months left. Had some palpitations a few days back, which he attributes to not sleeping well. Said he slept better last night and woke up feeling fine. Denies chest pain and SOB. Review of Systems Cardiovascular: Positive for palpitations (rare). All other systems reviewed and are negative. [facility] 05-26-2023 Note [facility] Consul t Note Reason for visit: sick sinus syndrome s/p PPM 2012, A-fib s/p ablation 2015, 6-month follow-up HPI: Patient here for 6-month follow-up patient been feeling well with no complaints of chest pain, shortness of breath, GRAY, lightness, dizziness, palpitations, orthopnea, LE edema. He was restarted on his Crestor and had lipids drawn recently which appear unremarkable he continues to take aspirin 325 mg and refuses DOAC or warfarin. States he does not want to be on a blood thinner. Device check 03/10/2023 -RA paced 100%, RV 0%, normal device function stable lead thresholds, no arrhythmias noted. 8 months till GUERRERO 09/2022 normal device function, stable lead thresholds, RA paced 99%, RV paced 0%, no A-fib noted. 11/2022 HPI: Justin Younger is a 68 y.o. year old with past medical history of A. fib status post ablation 2015, sinus node dysfunction status post pacemaker placement in 2012, hypertension, hyperlipidemia. He is here for 6-month follow-up. He states he has been doing very well denies chest pain, palpitations, shortness of breath, GRAY, lightheadedness, dizziness. I discussed with him his [id number] score is 2 and per guidelines he is recommended to be on anticoagulation despite minimal A. fib burden on past device checks. He expresses lifestyle and aspirin until he sees more evidence of A. fib on device checks. His last device check 09/2022 had normal threshold and impedance, 99% AP and 100% VS, with no atrial burden. Previous per Dr. Todd 06/2022: cc; Afib 67-year-old man with a past medical history of atrial fibrillation who underwent an A. fib ablation at [facility] in 2015. Previously he had a pacemaker implanted for sinus node dysfunction by Dr. Lilliana Silva in 2012 for what was believed to be a 17-second pause. When he is concerned about other health issues such as his dental problems. Otherwise he is a reasonably active man with no limitations and is currently not on any anticoagulation. he denies chest pain, dyspnea, orthopnea, PND, lower extremity edema, dizziness/lightheadedness, syncope, bleeding issues. PMHx: sinus node dysfunction s/p dual chamber PPM, paroxysmal a.fib with hx a.fib, PSVT, HTN -Denies chest pain, dyspnea, orthopnea, PND, lower extremity edema, dizziness/lightheadedness, syncope, bleeding issues. Device check that was done on 03/17/2022 shows evidence of a dual-chamber pacemaker with a 99% pacing in the atrium and no ventricular pacing. High atrial rates were recorded but unfortunately no strips to review Device check 09/03/2021: normal functioning device, 30 episodes of mode switching (2 minutes total), battery life 1 year and 9 months No strips Device check 03/05/21: multiple episodes of a.fib with ventricular response of 150 bpm on 02/14/21, shortest episode 10 min, longest episode 8 hours ECHO 04/2016 Global left ventricular systolic function is normal (Visually estimated EF 55%). Normal right ventricular systolic function. Doppler studies suggest normal right sided pressures. No significant valvular abnormalities CVL 12/15/[address] Ramirez Coronary Angiography: This is a left-dominant circulation. Left Main: This is a very short vessel arising from the left coronary cusp. It bifurcates into a left anterior descending and circumflex vessel. Left Anterior Descending: This is a large vessel. It is free of disease. Circumflex Vessel: This is a large and dominant vessel. It has minimal luminal irregularities and is free of any significant disease. Right Coronary Artery: This is arising from the right coronary cusp. It is very small and nondominant vessel that does not have evidence of obstructive disease. Note is made of mild catheter induced spasm at the ostium. Femoral Angiography: This showed evidence of mild atherosclerotic lesions in the femoral artery and its branches with a small size femoral artery that is not suitable for a groin access closure. Summary Of The Findings: No evidence of obstructive coronary disease in a left-dominant system. ECHO 2011 Conclusion: Normal systolic function of the left ventricle. Moderate diastolic dysfunction. Left ventricular hypertrophy. Moderate to severe pulmonary hypertension. PMH: Past Medical History: Diagnosis Date Atrial fibrillation (CMS/HCC) Hyperlipidemia Hypertension Pacemaker Pulmonary HTN (CMS/HCC) per echo 2012, most recent echo not noted Sinus node dysfunction (CMS/HCC) Sleep apnea PSH: Past Surgical History: Procedure Laterality Date ABLATION OF DYSRHYTHMIC FOCUS INSERT / REPLACE / REMOVE PACEMAKER SH: Social Determinants of Health Tobacco Use: Not on file Alcohol Use: Not on file Financial Resource Strain: Not on file Food Insecurity: Not on file Transportation Needs: Not on (more content not included)... [facility] 05-26-2023 Note Patient here for 6 m o follow up afib, sinus node dysfunction, and hyperlipidemia. PCP switched him from simvastatin to rosuvastatin. Had labs in April. Denies chest pain, SOB, and increase in palpitations. Review of Systems Cardiovascular: Positive for palpitations (rare). All other systems reviewed and are negative. [facility] 12-01-2022 Note -s/p ablation 2016 -no concerns with device checks -[id number]: 2 (age, htn) -stated he would like to continue aspirin versus starting DOAC or VKA until burden is seen on device, I did explain risk of stroke and guideline recommendations [facility] 12-01-2022 Note -BP slightly elevate d -states PCP is managing, I recommended to him dose change of ramipril but he was interested at this time [facility] 12-01-2022 Note -s/p PPM -last device check 09/2022, device function normal with no arrhythmia concerns -GUERRERO estimated 1 year [facility] 12-01-2022 Note Lipids abnormal, mil dly elevated triglycerides , noted in past to be elevated -recommend he start taking fish oil (omega 3), LDL 86 but was intolerant of statins -lipids apparently being managed by PCP and he states PCP sent in prescription of new drug, I recommended zetia and he is unsure what was written, states he will let us know [facility] 12-01-2022 Note [facility] Consul t Note Reason for visit: HPI: Justin Younger is a 67 y.o. year old with past medical history of A. fib status post ablation 2015, sinus node dysfunction status post pacemaker placement in 2012, hypertension, hyperlipidemia. He is here for 6-month follow-up. He states he has been doing very well denies chest pain, palpitations, shortness of breath, GRAY, lightheadedness, dizziness. I discussed with him his [id number] score is 2 and per guidelines he is recommended to be on anticoagulation despite minimal A. fib burden on past device checks. He expresses lifestyle and aspirin until he sees more evidence of A. fib on device checks. His last device check 09/2022 had normal threshold and impedance, 99% AP and 100% VS, with no atrial burden. Previous per Dr. Todd 06/2022: cc; Afib 67-year-old man with a past medical history of atrial fibrillation who underwent an A. fib ablation at [facility] in 2015. Previously he had a pacemaker implanted for sinus node dysfunction by Dr. Lilliana Silva in 2012 for what was believed to be a 17-second pause. When he is concerned about other health issues such as his dental problems. Otherwise he is a reasonably active man with no limitations and is currently not on any anticoagulation. he denies chest pain, dyspnea, orthopnea, PND, lower extremity edema, dizziness/lightheadedness, syncope, bleeding issues. PMHx: sinus node dysfunction s/p dual chamber PPM, paroxysmal a.fib with hx a.fib, PSVT, HTN -Denies chest pain, dyspnea, orthopnea, PND, lower extremity edema, dizziness/lightheadedness, syncope, bleeding issues. Device check that was done on 03/17/2022 shows evidence of a dual-chamber pacemaker with a 99% pacing in the atrium and no ventricular pacing. High atrial rates were recorded but unfortunately no strips to review Device check 09/03/2021: normal functioning device, 30 episodes of mode switching (2 minutes total), battery life 1 year and 9 months No strips Device check 03/05/21: multiple episodes of a.fib with ventricular response of 150 bpm on 02/14/21, shortest episode 10 min, longest episode 8 hours ECHO 04/2016 Global left ventricular systolic function is normal (Visually estimated EF 55%). Normal right ventricular systolic function. Doppler studies suggest normal right sided pressures. No significant valvular abnormalities CVL 12/15/[address] Ramirez Coronary Angiography: This is a left-dominant circulation. Left Main: This is a very short vessel arising from the left coronary cusp. It bifurcates into a left anterior descending and circumflex vessel. Left Anterior Descending: This is a large vessel. It is free of disease. Circumflex Vessel: This is a large and dominant vessel. It has minimal luminal irregularities and is free of any significant disease. Right Coronary Artery: This is arising from the right coronary cusp. It is very small and nondominant vessel that does not have evidence of obstructive disease. Note is made of mild catheter induced spasm at the ostium. Femoral Angiography: This showed evidence of mild atherosclerotic lesions in the femoral artery and its branches with a small size femoral artery that is not suitable for a groin access closure. Summary Of The Findings: No evidence of obstructive coronary disease in a left-dominant system. ECHO 2012 Conclusion: Normal systolic function of the left ventricle. Moderate diastolic dysfunction. Left ventricular hypertrophy. Moderate to severe pulmonary hypertension. PMH: Past Medical History: Diagnosis Date Atrial fibrillation (CMS/HCC) Hyperlipidemia Hypertension Pacemaker Pulmonary HTN (CMS/HCC) per echo 2012, most recent echo not noted Sinus node dysfunction (CMS/HCC) Sleep apnea PSH: Past Surgical History: Procedure Laterality Date ABLATION OF DYSRHYTHMIC FOCUS INSERT / REPLACE / REMOVE PACEMAKER SH: Social Determinants of Health Tobacco Use: Not on file Alcohol Use: Not on file Financial Resource Strain: Not on file Food Insecurity: Not on file Transportation Needs: Not on file Physical Activity: Not on file Stress: Not on file Social Connections: Not on file Intimate Partner Violence: Not on file Depression: Not on file Housing Stability: Not on file Allergies: Allergies Allergen Reactions Grass Pollen Weight: 80.3kg Visit Vitals BP 147/87 Pulse 70 Wt 80.3 kg (177 lb) SpO2 93% BMI 28.57 kg/m??? Smoking Status Never Assessed BSA 1.93 m??? Meds: Current Outpatient Medications on File Prior to Visit Medication Sig Dispense Refill aspirin 325 mg tablet Take 1 tablet every day by oral route. metoprolol succinate XL (Toprol-XL) 100 mg 24 hr tablet Take 1 tablet (100 mg) by mouth in the morning and at bedtime. 180 tablet 3 metoprolol succinate XL (Toprol-XL) 50 mg 24 hr tablet Take 1.5 table (more content not included)... [facility] 12-01-2022 Note Pt here for 6 month follow up feels fine. Gets a little flutter once in a while. Has not been taking simvastatin. ROS [facility] Evaluation note Diagnosis Herpes zoster without complication- [facility] Encounter for screening for cardiovascular disorders Essential (primary) hypertension Unspecified essential hypertension [facility] Attachments The following attachments cannot be sent through Care Everywhere. * Shingles (Faroese) documented in this encounter[facility]InstructionsNot on file [facility] Purpose Family History No Family History Records FoundNo Family History Records FoundNo Family History Records FoundNo Family History Records Found Advance Directives No Advanced Directives Records FoundNo Advanced Directives Records FoundNo Advanced Directives Records FoundNo Advanced Directives Records Found Additional Source Comments (unrecognized sect ion and content) No Status Records FoundNo Status Records FoundNo Status Records FoundNo Status Records Found INFORMATION SOURCE (unrecogn ized section and content) DATE CREATED AUTHOR 12/19/2018 [facility] DATE CREATED AUTHOR AUTHOR'S ORGANIZ ATION 01/25/2022 [facility] DATE CREATED AUTHOR AUTHOR'S ORGANIZ ATION 10/30/2023 [facility] DATE CREATED AUTHOR AUTHOR'S ORGANIZ ATION 11/07/2023 [facility] Reason for Visit (unrecogniz ed section and content) Reason Comments Follow-up Er follow up / shing les Reason Comments Med Refill Care Teams (unrecognized sec tion and content) [employer] Relationship Specialty Start Date End Date Clark Felipe DO [address] [place] [address] PCP - General Family Medicine 11/16/22 [employer] Relationship Specialty Start Date End Date Clark Felipe DO [address] [place] [address] PCP - General Family Medicine 11/16/22 FOR RECORDS PERTAINING TO PATIENTS WHO ARE OR HAVE BEEN ENROLLED IN A CHEMICAL DEPENDENCY/SUBSTANCEABUSE PROGRAM, SOME INFORMATION MAY BE OMITTED. This clinical summary was aggregated from multiple sources. Caution should be exercised in using it in the provision of clinical care. This summary normalizes information from multiple sources, and as a consequence, information in this document may materially change the coding, format and clinical context of patient data. In addition, data may be omitted in some cases. CLINICAL DECISIONS SHOULD BE BASED ON THE PRIMARY CLINICAL RECORDS. [employer] [facility]. provides no warranty or guarantee of the accuracy or completeness of information in this document.
[2023-12-01 12:20] LABS: Anion Gap 10.5; BUN Creatinine Ratio 11.4; Calcium 9.2 mg/dL (8.5-10.1); Carbon Dioxide 30.4 mmol/L (21.0-32.0); Chloride 102 mmol/L (98-107); Estimated GFR (African America >60 (>=60); Estimated GFR (Non-African Ame >60 (>=60); Glucose 98 mg/dL (74-106); Potassium 4.9 mmol/L (3.5-5.1); Sodium 138 mmol/L (136-145)
[2023-12-01 14:15] LABS: Basophils Percent Auto 0.4 % (0.2-2.0); Eosinophils Absolute Auto 0.3 10^3/uL (0.0-0.7); Eosinophils Percent Auto 3.5 % (0.9-7.0); Hematocrit 41.4 % (42.0-54.0); Hemoglobin 13.9 g/dL (14.0-18.0); Immature Granulocytes Abs Auto 0.03 10^3/uL (0.00-0.03); Immature Granulocytes Pct Auto 0.4 % (0.0-0.5); Lymphocytes Absolute Auto 0.4 10^3/uL (1.2-3.8); Lymphocytes Percent Auto 5.9 % (20.5-60.0); Mean Corpuscular HGB Conc 33.6 g/dL (29.9-35.2); Mean Corpuscular Hemoglobin 31.3 pg (25.9-34.0); Mean Corpuscular Volume 93.2 fL (80.0-94.0); Mean Platelet Volume 11.3 fL (9.5-13.5); Monocytes Percent Auto 13.2 % (1.7-12.0); Neutrophils Absolute Auto 5.7 10^3/uL (1.4-6.5); Neutrophils Percent Auto 76.6 % (43.0-75.0); Platelet Count 205 10^3/uL (150-450); Red Blood Count 4.44 10^6/uL (4.70-6.10); Red Cell Distribution Width 12.8 % (11.0-15.0); White Blood Count 7.5 10^3/uL (4.0-11.0)
== END 2023-12-01 11:15 | disposition home or self-care (01) ==
LOC: LAB 11:18
PROVIDERS: PCP Family Medicine; Visit Provider Internal Medicine Cardiovascular Disease
DX: Z01.810 Encounter for preprocedural cardiovascular examination (principal)
CPT/HCPCS: 36415; 80048; 85025